=== PATIENT | male | born 1990 | race Caucasian/White ===

== ENCOUNTER 2018-12-21 17:20 | Emergency (ER) | payer MEDICAID, OTHER ==
[2018-12-21] MEDS ORDERED: MIDAZOLAM 2 MG/2 ML SOL ONE ×2 (17:40→17:56)
[2018-12-21 17:42] VITALS: TEMP 97.2
[2018-12-21] MEDS: MIDAZOLAM 2 MG/2 ML SOL IV ONE ×3 (17:49→18:07)
[2018-12-21] MEDS: SODIUM CHLORIDE 0.9% 1000ML 1,000 ML IV ONE (18:05)
[2018-12-21 18:40] VITALS: RESP 18
[2018-12-21] MEDS: MINERAL OIL ENEMA 1 EA NMA PR ONE (18:53)
[2018-12-21 19:46] LABS: BASOPHILS % (AUTO) 1 % (0-3); EOSINOPHILS % (AUTO) 0 % (0-9); HEMATOCRIT 40 % (39-53); HEMOGLOBIN 13.1 gm/dl (13.5-17.7); LYMPHOCYTES % (AUTO) 23.9 % (10-50); MEAN CORPUSCULAR HEMOGLOBIN 30.6 pg (27.0-32.0); MEAN CORPUSCULAR HGB CONC 32.3 gm/dl (32.0-36.0); MEAN CORPUSCULAR VOLUME 95 fL (80-100); MONOCYTES % (AUTO) 4.7 % (0-12); NEUTROPHILS % (AUTO) 70.8 % (37-80)
[2018-12-21 20:17] LABS: ALBUMIN 3.9 gm/dl (3.4-5.0); BILIRUBIN,TOTAL 0.2 mg/dl (0.2-1.0); CALCIUM 8.9 mg/dl (8.5-10.1); CARBON DIOXIDE 28.1 mEq/L (21-32); CREATININE 0.81 mg/dl (0.80-1.30); POTASSIUM 4.1 mMol/L (3.5-5.1); TOTAL PROTEIN 8.1 gm/dl (6.4-8.2)
[2018-12-21 21:49] VITALS: PULSE 80; O2SAT 98
[2018-12-21 21:55] VITALS: BP 138/91
== END 2018-12-21 21:35 | disposition home or self-care (01) | DRG 392 ==
LOC: ED 17:20
DX: K59.00 Constipation, unspecified (principal)
CPT/HCPCS: 36415; 74177; 80053; 85025; 96365; 96366; 96374; 99283; 99285; J2250; Q9967